=== PATIENT | male | born 1950 | race Caucasian/White ===

== ENCOUNTER → 2016-08-09 | Outpatient (CLI) | payer BC ==
[2016-08-09 08:21] LABS: CHLORIDE,CL 100 mmol/L (98-110); SODIUM,NA 138 mmol/L (136-146)
== END ==
LOC: MW.CHFP 07:38
PROVIDERS: ATTEND Student in an Organized Health Care Education/Training Program
DX: I10 Essential (primary) hypertension (principal); E11.69 Type 2 diabetes mellitus with other specified complication; E78.5 Hyperlipidemia, unspecified
CPT/HCPCS: 36415; 80053; 80061; 82044; 83036

== ENCOUNTER → 2016-09-01 | Outpatient (CLI) | payer BC ==
--- NOTE | 2016-09-01 11:50 | CR ---
EXAMINATION: Two-view chest (PA and Lateral views). HISTORY: Fever. FINDINGS: The trachea is midline. The cardiomediastinal silhouette is within normal limits. No pulmonary infil trates, effusions or pneumothorax. Osseous structures appear unremarkable. IMPRESSION: No acute cardiopulmonary process.
== END ==
LOC: MW.CHFP 09:45
PROVIDERS: ATTEND Student in an Organized Health Care Education/Training Program
DX: R05 Cough (principal); R50.9 Fever, unspecified; J02.9 Acute pharyngitis, unspecified
CPT/HCPCS: 36415; 71020; 71020-26; 85025; 87081; 87880

== ENCOUNTER 2017-03-08 08:16 | Emergency (ER) | payer OTHER, BC ==
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
[2017-03-08] MEDS ORDERED: Diphtheria,Pertussis(Acell),Tetanus Vaccine 0.5 ML Syringe IM ONE (09:41)
== END 2017-03-08 10:05 | disposition home or self-care (01) ==
LOC: MW.ED 08:16
DX: S00.81XA Abrasion of other part of head, initial encounter (principal); S49.92XA Unspecified injury of left shoulder and upper arm, initial encounter; Z79.82 Long term (current) use of aspirin; Z88.0 Allergy status to penicillin; Z23 Encounter for immunization; Z79.899 Other long term (current) drug therapy; V49.9XXA Car occupant (driver) (passenger) injured in unspecified traffic accident, initial encounter
CPT/HCPCS: 72040; 73030; 81001; 90471; 90715; 99284; G0390; 99282

== ENCOUNTER 2018-07-09 09:17 | Day surgery (SDC) | payer OTHER ==
[~2018-07-09 09:17] MED LIST: Lactated Ringers 1,000 ML IV SCH
--- NOTE | 2018-07-09 10:29 | PCM.PREANE ---
Preanesthetic Assessment - Anesthesia/Transfusion/Family Hx Anesthesia History: Prior Anesthesia Without Reaction Family History of Anesthesia Reaction: No Transfusion History: No Prior Transfusion(s) Intubation History: Unknown - Review of Systems General: No Symptoms Pulmonary: No Symptoms Cardiovascular: No Symptoms Gastrointestinal: No Symptoms, Other (screening colonoscopy) Neurological: No Symptoms Other: Reports: None - Physical Assessment O2 Sat by Pulse Oximetry: 99 Respiratory Rate: 16 Vital Signs: Last Vital Signs Temp 36 C 07/09/18 09:54 Pulse 78 07/09/18 09:54 Resp 16 07/09/18 09:54 BP 167/96 H 07/09/18 09:54 Pulse Ox 99 07/09/18 09:54 Height: 1.85 m Weight: 93.894 kg ASA Class: 3 Mental Status: Alert & Oriented x3 Airway Class: Mallampati = 3 Dentition: Reports: Normal Dentition, [place](s) (on the back side) Thyro-Mental Finger Breadths: 3 Mouth Opening Finger Breadths: 2 ROM/Head Extension: Limited/Partial Lungs: Clear to Auscultation, Normal Respiratory Effort Cardiovascular: Regular Rate, Regular Rhythm - Allergies Allergies/Adverse Reactions: Allergies Allergy/AdvReac Type Severity Reaction Status Date / Time Penicillins Allergy Hives Verified 07/03/18 14:11 - Blood Blood Available: No - Anesthesia Plan Pre-Op Medication Ordered: None - Acknowledgements Anesthesia Type Planned: MAC Pt an Appropriate Candidate for the Planned Anesthesia: Yes Alternatives and Risks of Anesthesia Discussed w Pt/Guardian: Yes Pt/Guardian Understands and Agrees with Anesthesia Plan: Yes PreAnesthesia Questionnaire - Past Health History Medical/Surgical History: Denies Medical/Surgical History HEENT History: Reports: Other (See Below) Other HEENT History: wears glasses Cardiovascular History: Reports: High Cholesterol, Hypertension Respiratory History: Reports: Asthma, Sleep Apnea Other Respiratory History: uses CPAP Gastrointestinal History: Reports: GERD (under controle) Genitourinary History: Reports: None Musculoskeletal History: Reports: Back Pain, Chronic Neurological History: Reports: Neuropathy, Peripheral Psychiatric History: Reports: None Endocrine/Metabolic History: Reports: Diabetes, Type II Hematologic History: Reports: None Immunologic History: Reports: None Oncologic (Cancer) History: Reports: None Dermatologic History: Reports: Other (See Below) Other Dermatologic History: on and off rash to lower legs - Past Surgical History Head Surgeries/Procedures: Reports: None HEENT Surgical History: Reports: None Respiratory Surgical History: Reports: None GI Surgical History: Reports: None Male Surgical History: Reports: None Endocrine Surgical History: Reports: None Neurological Surgical History: Reports: None Musculoskeletal Surgical History: Reports: Other (See Below) Other Musculoskeletal Surgeries/Procedures:: surgery for fx rt index finger Oncologic Surgical History: Reports: None - SUBSTANCE USE Smoking Status *Q: Never Smoker Tobacco Use Within Last Twelve Months: Other (See Below) Recreational Drug Use History: No - HOME MEDS Home Medications: Home Meds Aspirin 81 mg PO DAILY 10/21/13 [History] Fluticasone/Salmeterol [Advair 250-50 Diskus] 1 puff INH BID 10/21/13 [History] Lisinopril 10 mg PO DAILY 10/21/13 [History] Omeprazole [Prilosec] 20 mg PO DAILY 10/21/13 [History] atorvaSTATin [Lipitor] 40 mg PO BEDTIME 10/21/13 [History] hydroCHLOROthiazide [Hydrochlorothiazide] 25 mg PO DAILY 10/21/13 [History] Albuterol [Ventolin HFA] 2 puff INH ASDIRECTED PRN 07/03/18 [History] Clobetasol [Clobetasol Propionate 0.05% Cream] 1 applic TOP ASDIRECTED 07/03/18 [History] Dapagliflozin Propanediol [Farxiga] 10 mg PO DAILY 07/03/18 [History] metFORMIN HCl [Metformin HCl] 2 mg PO BID 07/03/18 [History] - CURRENT (IN HOUSE) MEDS Current Meds: Current Medications Lactated Ringer's (Ringers, Lactated) 1,000 mls @ 125 mls/hr IV ASDIRECTED [facility] Last Admin: 07/09/18 09:58 Dose: 125 mls/hr
[2018-07-09] MEDS ORDERED: Midazolam 1 MG/ML 2 ML SDV ONE (11:57)
[2018-07-09] MEDS ORDERED: fentaNYL 100 MCG/2 ML SDV ONE (11:58)
[2018-07-09] MEDS ORDERED: Propofol 200 MG/20 ML SDV ONE ×2 (12:00→12:37)
[2018-07-09] MEDS ORDERED: Lidocaine 2% 5 ML SDV ONE (12:00)
[2018-07-09] MEDS ORDERED: Lactated Ringers 1,000 ML IV SCH (12:45)
--- NOTE | 2018-07-09 12:47 | PCM.OPNOTE ---
- General Post-Op/Procedure Note Date of Surgery/Procedure: 07/09/18 Operative Procedure(s): Colonoscopy Pre Op Diagnosis: Desire for colorectal cancer screening Post-Op Diagnosis: No evidence of neoplasia Anesthesia Technique: MAC (ASA III) Primary Surgeon: Morales Santoro Condition: Good Free Text/Narrative:: DICTATION [id number] CPT CODE [id number]
--- NOTE | 2018-07-09 19:31 | OR ---
SURGEON: Morales Santoro M.D. DATE OF PROCEDURE: 07/09/2018 OPERATIONS PERFORMED: Colonoscopy. ANESTHESIA: MAC. ASA CLASSIFICATION: III. PREOPERATIVE DIAGNOSIS: Desire for colorectal cancer screening. POSTOPERATIVE DIAGNOSIS: No evidence of neoplasia. DESCRIPTION OF PROCEDURE: The patient was taken to the endoscopy room and positioned on the endoscopy table in the left lateral decubitus position. Time-out was called for appropriate identification of the patient and procedure. Monitored anesthesia care was provided. The colonoscope was inserted into the rectum and advanced with minimal difficulty to the cecum. The colonoscope was retroflexed to visualize the ascending colon from below and then straightened and slowly withdrawn. Cecum, ascending colon, hepatic flexure, transverse colon, splenic flexure, descending colon, sigmoid colon, and rectum were well visualized. No tumors, polyps, diverticula, or angiodysplastic changes were noted anywhere in the lower gastrointestinal tract. Once the colonoscope was withdrawn to the rectum, it was retroflexed to visualize the anal orifice from above. Again, no tumors or polyps were seen. There were no acute hemorrhoidal changes. The colonoscope was then straightened, the rectum aspirated, and the colonoscope removed. The patient tolerated the procedure well and was taken to recovery room in stable condition. ROBBI / BASSAM /[id number]
== END 2018-07-09 13:39 | disposition home or self-care (01) ==
LOC: MW.SDS 09:17
PROVIDERS: ATTEND Surgery
DX: Z12.11 Encounter for screening for malignant neoplasm of colon (principal); I10 Essential (primary) hypertension; J45.909 Unspecified asthma, uncomplicated; E11.9 Type 2 diabetes mellitus without complications; E78.5 Hyperlipidemia, unspecified; K21.9 Gastro-esophageal reflux disease without esophagitis; G47.33 Obstructive sleep apnea (adult) (pediatric); M17.12 Unilateral primary osteoarthritis, left knee; E78.00 Pure hypercholesterolemia, unspecified; Z79.84 Long term (current) use of oral hypoglycemic drugs; Z79.82 Long term (current) use of aspirin; Z79.899 Other long term (current) drug therapy; Z99.89 Dependence on other enabling machines and devices; Z88.0 Allergy status to penicillin
CPT/HCPCS: 45378; 82962; J2001; J2250; J2704; J3010; J7120